=== PATIENT | female | born 2000 | race Caucasian/White ===

== ENCOUNTER 2025-03-19 13:39 | Emergency (ER) | payer OTHER ==
[~2025-03-19] VITALS: Ht 170.2 cm; Wt 54.5 kg
[2025-03-19 13:46] VITALS: TEMP 98.4
[2025-03-19 14:28] LABS: PLATELET COUNT (AUTO) 310 K/uL (150-450); RED BLOOD CELL COUNT(AUTO) 4.48 MIL/uL (4.00-5.20); RED CELL DISTRIBUTION WIDTH 12.7 % (11.5-14.5); WHITE BLOOD COUNT (AUTO) 5.0 K/uL (4.5-11.0)
[2025-03-19 14:37] LABS: CALCIUM, TOTAL 9.0 mg/dL (8.8-10.5); CREATININE 0.88 mg/dL (0.60-1.30); GLOMERULAR FILTR. RATE CALC > 60 mL/min (>60); GLUCOSE,RANDOM 92 mg/dL (70-110); SODIUM SERUM 135 mmol/L (136-145); UREA NITROGEN, BLOOD 10 mg/dL (7-18)
[2025-03-19] MEDS: SODIUM CHLORIDE 0.9% 1,000 ML IV ONE (14:40)
[2025-03-19 14:46] LABS: TROPONIN I-HIGH SENSITIVITY 4 ng/L (<51)
[2025-03-19 17:34] LABS: TROPONIN I-HIGH SENSITIVITY 5 ng/L (<51)
[2025-03-19 18:00] VITALS: BP 90/64; PULSE 84; RESP 20; O2SAT 98
[2025-03-19] MEDS: ACETAMINOPHEN 325 MG TABLET PO ONE (18:11)
== END 2025-03-19 18:50 | disposition home or self-care (01) ==
LOC: EMS 13:43
DX: R00.2 Palpitations (principal); R06.02 Shortness of breath; R07.89 Other chest pain; F12.90 Cannabis use, unspecified, uncomplicated; Z86.79 Personal history of other diseases of the circulatory system; Z90.49 Acquired absence of other specified parts of digestive tract
CPT/HCPCS: 99285; 71045; 80048; 83735; 84484; 84703; 85025; 36415; 93005; J7030